=== PATIENT | male | born 1940 | race Caucasian/White ===

== ENCOUNTER 2020-06-26 00:47 | Emergency (ER) | payer MEDICARE, BC ==
[2020-06-26 01:24] LABS: Hemoglobin 10.9 g/dL (14.0-18.0); Mean Corpuscular HGB CONC 32.6 g/dL (32.0-36.0); Mean Corpuscular Hemoglobin 27.5 pg (27.0-31.0); Mean Corpuscular Volume 84.5 fL (78.0-98.0); Mean Platelet Volume 7.6 fL (7.4-10.4); Platelet Count 310 thou/uL (130-400); Red Blood Cell (RBC) Count 3.97 mill/uL (4.70-6.10); White Blood Cell (WBC) Count 17.3 thou/uL (4.8-10.8)
[2020-06-26 01:30] LABS: INR-International Normal Ratio 1.2; PTT 33.2 sec (22.9-36.1); Prothrombin Time 15.5 sec (12.0-14.7)
[2020-06-26] MEDS ORDERED: Cefepime 2 GM VIAL ONE (01:32)
[2020-06-26] MEDS ORDERED: Vancomycin 1 GM/200 ML BAG ONE (01:32)
[2020-06-26 01:44] LABS: Band 10 % (5-11); Lymphocytes 2 % (21-51); MDiff Complete? YES; Monocytes 3 % (0-10); Neutrophil 85 % (42-75)
[2020-06-26 01:45] LABS: D-Dimer Test 11.12 *mcg/mL (0.27-0.43)
[2020-06-26 02:06] LABS: Bacteria/HPF 3+ HPF (None Seen); Bilirubin Negative (Negative); Blood, Urine 2+ (Negative); Clarity Extra Turbid (Clear); Glucose, Urine (Dipstick) Normal (Negative); Ketone, Urine Negative (Negative); Leukocyte 500 Leu/uL (Negative); Mucous/LPF Rare LPF (<2+); Nitrite Negative (Negative); Protein, Urine (Dipstick) 100 mg/dL (Neg-Trace); RBC/HPF Greater than 50 HPF (0-3); Specific Gravity, Urine 1.019 (1.002-1.036); WBC/HPF Greater than 50 HPF (0-3)
[2020-06-26 02:06] LABS: CKMB 1.8 ng/mL (0-6.6)
[2020-06-26] MEDS ORDERED: Hyoscyamine Sulfate SL 0.125 mg Tablet SL SCH (05:00)
[2020-06-26] MEDS ORDERED: Lorazepam 2 MG/ML VIAL ONE (05:31)
[2020-06-26 06:11] LABS: SARS-CoV-2 NAA Rapid Test Not Detected (NotDetected)
--- NOTE | 2020-06-26 08:05 | RAD ---
Portable frontal chest radiograph: 06/26/2020 COMPARISON: None available HISTORY: Left-sided weakness, hypotension, abnormal lung sounds bilaterally FINDINGS: There is patchy nonspecific increased interstitial density in the medial right lung base wi th probable superimposed airspace disease. There is dense opacity in the medial left base suggesting partial consolidation/collapse involving th e left lower lobe. In addition, there is hazy increased density within the lingula in the mid left lung zone which could be on the basis of infectious pneumonitis or aspiration. Follow-up imaging is a dvised to exclude an underlying mass within the left lung. There is a dual lead transvenous pacing device. There are postoperative clips in the left axillary re gion. Questionable nodular densities are noted within the mid left lung zone. IMPRESSION: Dense opacity in the left perihilar region/left lung base and hazy increased density in t he medial right lung base. Findings suggest infectious pneumonitis or aspiration. Follow-up advised to exclude an underlying mass within the left lung. CODE T
--- NOTE | 2020-07-15 21:02 | EKG ---
Test Reason : Blood Pressure : / mmHG Vent. Rate : 123 BPM Atrial Rate : 061 BPM P-R Int : 000 ms QRS Dur : 076 ms QT Int : 312 ms P-R-T Axes : 000 -01 196 degrees QTc Int : 446 ms Atrial fibrillation with rapid ventricular response with premature ventricular or aberrantly conducte d complexes Nonspecific ST and T wave abnormality , probably digitalis effect Abnormal ECG Confirmed by DANIEL SANCHEZ ([id number]), visual effects editor KERRI HUNT ([id number]) on 07/15/2020 9:01:30 PM Referred By: Confirmed By:DANIEL SANCHEZ
== END 2020-06-26 06:59 | disposition admitted as inpatient to this hospital (09) ==
LOC: ERS 00:47
DX: I62.9 Nontraumatic intracranial hemorrhage, unspecified (principal); A41.9 Sepsis, unspecified organism; R65.21 Severe sepsis with septic shock; J96.90 Respiratory failure, unspecified, unspecified whether with hypoxia or hypercapnia; Z20.822 Contact with and (suspected) exposure to COVID-19; I48.91 Unspecified atrial fibrillation; D64.9 Anemia, unspecified; J44.9 Chronic obstructive pulmonary disease, unspecified; I10 Essential (primary) hypertension; Z85.46 Personal history of malignant neoplasm of prostate; Z79.899 Other long term (current) drug therapy; Z79.01 Long term (current) use of anticoagulants
CPT/HCPCS: 0240U; 51701; 71045; 82553; 83605; 83880; 84484; 85025; 85379; 85610; 85730; 87040; 87077; 87086; 87149 ×2; 87186; 93005; 94760; 96365; 96367; 96375; 99291; 99292; 36415; 81003; 81015; J0692; J2060; J3370